=== PATIENT | female | born 1960 | race Caucasian/White ===

== ENCOUNTER 2019-10-31 17:06 | Outpatient (CLI) | payer OTHER, SELFPAY | END 2019-10-31 17:07 | disposition home or self-care (01) | LOC: RAD 17:13 | PROVIDERS: Visit Provider Registered Nurse | DX: Z01.89 Encounter for other specified special examinations (principal) ==

== ENCOUNTER 2019-10-31 17:53 | Emergency (ER) | payer OTHER, SELFPAY ==
--- NOTE | 2019-10-31 | USR_ITS ---
[facility] Final Radiology Report with Addendum Call: [phone] assistance Online chat: [email or web address] Name: MIRTA TAPIA Age: 59Years U Date: 10/31/2019 MRN: [id number] SSN: -- : 1960 Study: US DUPLEX EXTREM VEINS BILAT COMPLETE Requesting Physician: Mary Thomason Images: [id number] Add?l Studies: Provided Clinical History: Prelim given to Pt's provider and was taken to ER Addendum created by Bob Phillip DO on 10/31/2019 10:44 PM Central Time ([place] & [place]) THIS REPORT CONTAINS FINDINGS THAT MAY BE CRITICAL TO PATIENT CARE. The findings were verbally communicated via telephone conference with Mary Thomason at 10:43 PM ENERGY AND SUSTAINABILITY MANAGER on 10/31/2019. The findings were acknowledged and understood. 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 Had history of a clot in her arm several years ago; Additional info: Prelim given to pt's provider and was taken to er TECHNIQUE: Imaging protocol: Real-time duplex ultrasound of the Lower Extremities with 2-D pickering scale, color Doppler flow and spectral waveform analysis with image documentation. Complete exam focused on the bilateral lower extremity veins. COMPARISON: No relevant prior studies available. FINDINGS: Right deep veins: Unremarkable. The common femoral, femoral, proximal profunda femoral and popliteal veins are patent without thrombus. Normal Doppler waveforms. Normal compressibility and/or augmentation response. Right superficial veins: Occlusive thrombus of the right superficial saphenous vein. Left deep veins: Examination reveals evidence of subacute to early chronic appearing nonocclusive thrombus of the proximal left common femoral vein. Left superficial veins: Occlusive thrombus of the greater saphenous vein and superficial saphenous vein on the left. Soft tissues: Unremarkable. Other findings: In addition to the static images which numbered over 27 images there were an additional 68 cine loops that required review. IMPRESSION: 1. Evidence of subacute to early chronic nonocclusive deep venous thrombosis of the proximal left common femoral vein. 2. Occlusive thrombus of the left greater saphenous vein and superficial saphenous vein. 3. Occlusive thrombus of the right superficial saphenous vein. Thank you for allowing us to participate in the care of your patient. Dictated and Authenticated by: Bob Phillip DO 10/31/2019 7:15 PM Central Time ([place] & [place]) CHAR
[2019-10-31 18:05] VITALS: BP 134/79; PULSE 94; RESP 18; TEMP 36.6; O2SAT 97; BMI 38.4
--- NOTE | 2019-10-31 18:12 | ED_ITS ---
Entered by [place], acting as scribe for Oct 31, 2019 17:53 HPI - General Adult General: Chief complaint: General Medical Stated complaint: bilat leg blood clots per ultrasound Time Seen by Provider: 10/31/19 18:12 Source: patient Mode of arrival: ambulatory Limitations: no limitations History of Present Illness: HPI narrative: 59 yo f came to the er from [facility] [place] Ultrasound. Pt was sent over from ultrasound due to massive blood clots in bilat legs. Pt states that she has been having some pain in her right calf and in her left side there has been some redness but not as much pain. Pt states that her dr is . MD complaint: blood clots Onset (ago): day(s) (today) Location: lower extremity (both) Severity: moderate Quality: sharp Pain Consistency: constant Relieving factors: none Exacerbating factors: none Associated symptoms: Reports no associated symptoms; Deny chest pain, confusion, diaphoresis, dyspnea, headache(s), malaise, nausea, rash, palpitations, syncope or vomiting Review of Systems General: Reports: other (negative unless marked) Const: Denies: fever, chills, body aches, fatigue, malaise or diaphoresis Eyes: Denies: change in vision or blurry vision ENMT: Denies: throat pain, painful swallowing, hoarseness, ear pain, ear discharge, Change in hearing or nasal discharge Card: Denies: chest pain, palpitations, irregular heart rhythm, syncope, pre- syncope, shortness of breath on exertion or shortness of breath when lying down Resp: Denies: shortness of breath, productive cough, non-productive cough, wheezing, coughing up blood or chest congestion GI: Denies: abdominal pain, nausea, vomiting, vomiting blood, coffee grounds in vomit, diarrhea, constipation, cramping, blood in stool or black tarry stool : Denies: flank pain, painful urination, urinary frequency, urinary urgency, decreased urine ouput, urinary incontinence or blood in urine Musc: Reports: extremity pain; Denies: neck pain, back pain, extremity swelling, joint pain, joint swelling, joint warmth or joint stiffness Skin/Breast: Denies: rash, skin tenderness or yellow skin Neuro: Denies: headache, numbness in extremities, weakness in extremities, changes in sensation, lack of coordination, difficulty walking, dizziness, vertigo or confusion Endo: Denies: excessive thirst, tired all the time, cold intolerance, exc essive sweating, flushing or hot flashes Zackary/Lymph: Denies: easy bruising, easy bleeding, petechiae or enlarged lymph nodes All/Imm: Denies: hives, throat swelling, tongue swelling, facial swelling or acute wheezing PFSH ED PFSH: Social History Smoking and tobacco status: former smoker Physical Exam Const: COMMON NORMALS: no apparent distress, oriented x3, no limitations, healthy appearing and well nourished EXAM LIMITATIONS: no altered mental status GENERAL APPEARANCE: cooperative, well kempt and well developed ORIENTATION/CONSCIOUSNESS: Yes awake HENMT: COMMON NORMALS: normocephalic, head/scalp atraumatic, hearing grossly normal bilaterally, external ears normal, EAC's normal, external nose normal and moist oral mucous membranes HEAD & SCALP: normal to inspection, normocephalic and atraumatic FACE & SINUS: normal facial exam and face symmetric NOSE: external nose normal and nares normal EXTERNAL EAR: Yes external ears normal EXTERNAL AUDITORY CANAL: EAC's normal MOUTH: oral and palatal mucosa normal and tongue normal Eye: COMMON NORMALS: PERRL, EOMs intact bilaterally, conjunctivae normal and no scleral icterus GENERAL EYE: normal appearance of both eyes and normal light reflex CONJUNCTIVA: Yes conjunctivae normal SCLERA: sclerae normal CORNEA: Yes corneas normal PUPIL: Yes PERRL DIRECT OPHTHALMOSCOPY: Yes normal light reflex Neck/C-Spine: COMMON NORMALS: full ROM, no lymphadenopathy, supple, no meningeal signs and no JVD GENERAL: Yes normal visual inspection and Yes trachea midline CERVICAL SPINE: Yes cervical ROM normal Chest: COMMONS NORMALS: inspection of chest normal and palpation of chest normal Resp: COMMON NORMALS: normal respiratory effort, no retractions, no use of accessory muscles and clear to auscultation bilaterally EFFORT & INSPECTION: Yes able to speak in complete sentences AUSCULTATION: clear to auscultation bilaterally Cardio: COMMON NORMALS: no JVD, regular rate, regular rhythm, S1 normal heart sound, S2 normal heart sound, no gallops, no clicks, no murmurs and no rub JUGULAR VENOUS DISTENTION: no JVD RATE: regular rate RHYTHM: regular rhythm HEART SOUNDS: S1 normal and S2 normal GI: COMMON NORMALS: soft to palpation, non-tender, no hepatosplenomegaly and no masses INSPECTION: Yes normal to inspection PALPATION: Yes soft and Yes no hepatosplenomegaly : COMMON NORMALS: Yes no CVA tenderness BLADDER/KIDNEY EXAM: Yes no CVA tenderness Back/Pelvis: COMMON NORMALS: no CVA tenderness, thoracic and lumbar spine normal to inspection, no thoracic nor lumbar tenderness and thoraco-lumbar ROM normal Extremity: COMMON NORMALS: full ROM, normal capillary refill, no joint en largement and no clubbing, cyanosis or edema Neuro: COMMON NORMALS: oriented x3, CN's II-XII intact bilaterally, moves all extremities, no focal motor deficits and no sensory deficits noted MENINGEAL SIGNS: Yes no meningeal signs Psych: COMMON NORMALS: mental status grossly normal, thought process normal, cooperative, affect normal, speech normal and activity/motor behavior normal APPEARANCE: Yes well kempt SPEECH: Yes normal speech THOUGHT PROCESS: normal thought process Skin: COMMON NORMALS: no rashes or lesions noted, skin turgor normal, no jaundice, no petechiae and no mottling GENERAL SKIN EXAM: no rashes or lesions noted and turgor normal Course Vital Signs: Vital signs: Vital Signs Temperature 98 F 10/31/19 18:05 Pulse Rate 88 10/31/19 20:09 Respiratory Rate 18 10/31/19 20:09 Blood Pressure 117/77 10/31/19 20:09 Pulse Oximetry 98 10/31/19 20:09 MDM - General Adult MDM Narrative: Medical decision making narrative: The patient has no evidence of right heart strain on CT, her BNP is normal, her troponin is normal and she has no chest pain or shortness of breath. I reviewed the case in full with Dr. Carmen on-call for pulmonology and he states the patient can be discharged home and follow-up with him in the office. I reviewed this with the patient and this pleases her. She does not want to be admitted to the hospital. I have informed her of the risks but she states that if the same things could happen in the hospital she would much rather be at home. She agrees to return should the symptoms develop but at this time she is feeling reassured and wants to go home. She was given a dose of Lovenox here and she assures me that she cannot fill her prescription for Eliquis in the morning and begin that as prescribed. Lab Data: Attestation: I reviewed the patient's lab results. Labs: Lab Results 10/31/19 10/31/19 10/31/19 Range/Units 18:10 18:15 18:15 WBC 6.0 (4.0-10.0) 10^3/ uL RBC 4.59 (4.1-5.3) 10^6/u L Hgb 13.5 (11.5-15.3) g/dL Hct 40.5 (37.0-47.0) % MCV 88.2 (81-99) fL MCH 29.4 (28.0-34.0) pg MCHC 33.3 (30.0-36.0) g/dL RDW 12.5 (12.1-15.1) % Plt Count 235 (130-400) 10^3/c mm MPV 8.9 (7.4-10.4) fL Neut % (Auto) 42.4 % Lymph % (Auto) 45.3 % Cassia % (Auto) 7.8 % Eos % (Auto) 4.0 % Baso % (Auto) 0.5 % Neut # (Auto) 2.6 (1.8-7.7) 10^3/u L Lymph # (Auto) 2.7 (0.8-4.8) 10^3/u L Cassia # (Auto) 0.5 (0.2-0.9) 10^3/u L Eos # (Auto) 0.2 (0.0-0.8) 10^3/u L Baso # (Auto) 0.0 (0.0-0.1) 10^3/u L Nucleated RBC % (a uto) 0 % Nucleated RBCs # 0.0 /100WBC PT 13.30 (10.5-13.3) SECO NDS INR 0.98 (0.8-1.2) APTT 29.7 (23.9-36.7) SECO NDS Sodium (136-145) mmol/L Potassium (3.5-5.1) mmol/L Chloride (98-107) mmol/L Carbon Dioxide (22-29) mmol/L Anion Gap (5-19) BUN (6-20) mg/dL Creatinine (0.5-0.9) mg/dL GFR Calculation (90-130) mL/min Glucose (65-115) mg/dL Calcium (8.5-10.5) mg/dL Total Bilirubin (0.15-1.2) mg/dL AST (0-32) U/L ALT (0-33) U/L Alkaline Phosphata se (35-105) IU/L Troponin T Baselin e (0-10) ng/mL NT-Pro-B Natriuret Pep (0-125) pg/mL Total Protein (6.6-8.7) g/dL Albumin (3.5-5.2) g/dL Globulin (1.3-4.6) g/dL Urine Color Yellow (Yellow) Urine Appearance Cloudy (CLEAR) Urine pH 5 (5-7) Ur Specific Gravit y 1.020 (1.005-1.030) Urine Protein Neg (Negative) Urine Glucose (UA) Norm (Normal) Urine Ketones Negative (Negative) Urine Blood Neg (Negative) Urine Nitrate Negative (Negative) Urine Bilirubin Neg (NEGATIVE) Urine Urobilinogen 1 H (Negative) mg/dL Ur Leukocyte Marla ase Negative (Negative) Urine RBC None (0-2) /hpf Urine WBC 5-10 H (0-5) /hpf Ur Squamous Epith Cells 10-15 H (0-5) Urine Bacteria Trace (NONE) 10/31/19 10/31/19 Range/Units 18:15 18:15 WBC (4.0-10.0) 10^3/ uL RBC (4.1-5.3) 10^6/u L Hgb (11.5-15.3) g/dL Hct (37.0-47.0) % MCV (81-99) fL MCH (28.0-34.0) pg MCHC (30.0-36.0) g/dL RDW (12.1-15.1) % Plt Count (130-400) 10^3/c mm MPV (7.4-10.4) fL Neut % (Auto) % Lymph % (Auto) % Cassia % (Auto) % Eos % (Auto) % Baso % (Auto) % Neut # (Auto) (1.8-7.7) 10^3/u L Lymph # (Auto) (0.8-4.8) 10^3/u L Cassia # (Auto) (0.2-0.9) 10^3/u L Eos # (Auto) (0.0-0.8) 10^3/u L Baso # (Auto) (0.0-0.1) 10^3/u L Nucleated RBC % (a uto) % Nucleated RBCs # /100WBC PT (10.5-13.3) SECO NDS INR (0.8-1.2) APTT (23.9-36.7) SECO NDS Sodium 139 (136-145) mmol/L Potassium 3.9 (3.5-5.1) mmol/L Chloride 98 (98-107) mmol/L Carbon Dioxide 27 (22-29) mmol/L Anion Gap 17.9 (5-19) BUN 13 (6-20) mg/dL Creatinine 0.7 (0.5-0.9) mg/dL GFR Calculation 86.2 L (90-130) mL/min Glucose 106 (65-115) mg/dL Calcium 9.9 (8.5-10.5) mg/dL Total Bilirubin 0.5 (0.15-1.2) mg/dL AST 38 H (0-32) U/L ALT 47 H (0-33) U/L Alkaline Phosphata se 106 H (35-105) IU/L Troponin T Baselin e 6 (0-10) ng/mL NT-Pro-B Natriuret Pep 106 (0-125) pg/mL Total Protein 7.9 (6.6-8.7) g/dL Albumin 4.3 (3.5-5.2) g/dL Globulin 3.6 (1.3-4.6) g/dL Urine Color (Yellow) Urine Appearance (CLEAR) Urine pH (5-7) Ur Specific Gravit y (1.005-1.030) Urine Protein (Negative) Urine Glucose (UA) (Normal) Urine Ketones (Negative) Urine Blood (Negative) Urine Nitrate (Negative) Urine Bilirubin (NEGATIVE) Urine Urobilinogen (Negative) mg/dL Ur Leukocyte Marla ase (Negative) Urine RBC (0-2) /hpf Urine WBC (0-5) /hpf Ur Squamous Epith Cells (0-5) Urine Bacteria (NONE) Imaging Data^: CTA Chest: Radiologist's impression: [facility] [address] [place] [address] CT Scan Report Signed Patient: Betty Tapia #: [id number] : 1960Acct#:[id number] Age/Sex: 59 / FADM Date: 10/31/19 Loc: ERRoom/Bed: Attending Dr: Ordering Provider/Ordering MD: Mary Thomason DO Date of Service: 10/31/19 Procedure(s): CT angio chest PE protcl [id number] Accession Number(s): [id number] Report Number: [id number] PROCEDURE INFORMATION: Exam: CT Angiography Chest With Contrast Exam date and time: 10/31/2019 7:08 PM Age: 59 years old Clinical indication: Abnormal findings; Other: +dvt by US; Patient HX: + dvt by US, C/O minimal SOB and cp; Additional info: Dyspnea - dvt positive TECHNIQUE: Imaging protocol: Computed tomographic angiography of the chest with intravenous contrast. 3D rendering: MIP and/or 3D reconstructed images were created by the technologist. Total DLP: 530.85 mGy-cm Radiation optimization: All CT scans at this facility use at least one of these dose optimization techniques: automated exposure control; mA and/or kV adjustment per patient size (includes targeted exams where dose is matched to clinical indication); or iterative reconstruction. Contrast material: OMNI 350; Contrast volume: 95 ml; Contrast route: 20G; COMPARISON: No relevant prior studies available. FINDINGS: Pulmonary arteries: There is a large embolus in the left lower lobe pulmonary artery extending into segmental branches. Aorta: Unremarkable. No aortic aneurysm. No aortic dissection. Lungs: Minor linear atelectasis or fibrosis at the left lung base. Series 3, image 36, 7 mm nodule in the the lingula. Pleural space: Unremarkable. No pneumothorax. No pleural effusion. Heart: Unremarkable. No cardiomegaly. No pericardial effusion. Adrenals: There is a small, 10 mm, left adrenal nodule. The appearance is nonspecific. Stomach and bowel: There are postoperative changes of the stomach. Lymph nodes: There are small nonspecific mediastinal lymph nodes. No significantly enlarged lymph nodes. Bones/joints: Unremarkable. No acute fracture. Soft tissues: Unremarkable. Other findings: No evidence of RV strain. CT/CT angio chest PE protcl [id number] IMPRESSION: 1. Left large left lower lobe pulmonary arterial embolus extending into segmental branches. No evidence of RV strain. 2. 7 mm pulmonary nodule in the lingula.For patients at low risk (minimal or absent history of smoking and of other known risk factors), recommend CT at 6-12 months, then consider CT at 18-24 months. For patients at high risk (history of smoking or of other known risk factors), recommend CT at 6-12 months, then CT at 18-24 months. (Alfredo et al., Fleischner Society, 2017) 3. Nonspecific 10 mm left adrenal nodule.Consider 12 month follow-up adrenal CT. (Marianela Meier, ACR White Paper, 2017) COMMENTS: Consistent with the [place] [employer]'s Incidental Findings Committee white paper (J Am Clyde Radiol 2017): Any incidental adrenal lesion less than 1.0 cm is likely benign. No follow-up imaging is recommended for these lesions per consensus recommendations based on imaging criteria. Further lab evaluation could be pursued if warranted based on clinical findings. Radiation Dose CTDIVOL = (mGy): DLP = 530.85 (mGy-cm) Dictated By:Steven Snell MD Signed By:Steven Snelligned Date/Time:10/31/192001 DD/ 00 US: Radiologist's impression: [facility] Final Radiology Report Call: [phone] assistance Online chat: [email or web address] Name: BETTY TAPIA Age: 59Years U Date: 10/31/2019 MRN: WILLIE SSN: -- : 1960 Study: US DUPLEX EXTREM VEINS BILAT COMPLETE Requesting Physician: Mary Thoamson Images: [id number] Add?l Studies: Provided Clinical History: Prelim given to Pt's provider and was taken to ER Page 1 of 2 PROCEDURE INFORMATION: Exam: US Duplex Lower Extremity Veins Exam date and time: 10/31/2019 5:28 PM Age: 59 years old Clinical indication: Pain; Leg, lower; Bilateral; 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 Had history of a clot in her arm several years ago; Additional info: Prelim given to pt's provider and was taken to er TECHNIQUE: Imaging protocol: Real-time duplex ultrasound of the Lower Extremities with 2-D pickering scale, color Doppler flow and spectral waveform analysis with image documentation. Complete exam focused on the bilateral lower extremity veins. COMPARISON: No relevant prior studies available. FINDINGS: Right deep veins: Unremarkable. The common femoral, femoral, proximal profunda femoral and popliteal veins are patent without thrombus. Normal Doppler waveforms. Normal compressibility and/or augmentation response. Right superficial veins: Occlusive thrombus of the right superficial saphenous vein. Left deep veins: Examination reveals evidence of subacute to early chronic appearing nonocclusive thrombus of the proximal left common femoral vein. Left superficial veins: Occlusive thrombus of the greater saphenous vein and superficial saphenous vein on the left. Soft tissues: Unremarkable. Other findings: In addition to the static images which numbered over 27 images there were an additional 68 cine loops that required review. IMPRESSION: BETTY TAPIA MRN:WILLIE Final Radiology Report CONFIDENTIALITY STATEMENT This report is intended only for use by the referring physician, and only in accordance with law. If you received this in error, call [phone]. Page 2 of 2 1. Evidence of subacute to early chronic nonocclusive deep venous thrombosis of the proximal left common femoral vein. 2. Occlusive thrombus of the left greater saphenous vein and superficial saphenous vein. 3. Occlusive thrombus of the right superficial saphenous vein. Thank you for allowing us to participate in the care of your patient. Dictated and Authenticated by: Bob Phillip DO 10/31/2019 7:15 PM Central Time ([place] & [place]) EKG Data^: EKG 1: EKG interpretation date: 10/31/19 EKG interpretation time: 18:43 Interpretation: Normal sinus rhythm at 87 beats a minute, incomplete right bundle branch block. Computer generated interpretation: Chest CTA 10/31/19 18:18 IMPRESSION: 1. Left large left lower lobe pulmonary arterial embolus extending into segmental branches. No evidence of RV strain. 2. 7 mm pulmonary nodule in the lingula.For patients at low risk (minimal or absent history of smoking and of other known risk factors), recommend CT at 6-12 months, then consider CT at 18-24 months. For patients at high risk (history of smoking or of other known risk factors), recommend CT at 6-12 months, then CT at 18-24 months. (MacMahon et al., Fleischner Society, 2017) 3. Nonspecific 10 mm left adrenal nodule.Consider 12 month follow-up adrenal CT. (Marianela Meier, ACR White Paper, 2017) COMMENTS: Consistent with the [place] [employer]'s Incidental Findings Committee white paper (J Am Clyde Radiol 2017): Any incidental adrenal lesion less than 1.0 cm is likely benign. No follow-up imaging is recommended for these lesions per consensus recommendations based on imaging criteria. Further lab evaluation could be pursued if warranted based on clinical findings. Radiation Dose CTDIVOL = (mGy): DLP = 530.85 (mGy-cm) ADDENDUM: 10/31/192007 THIS REPORT CONTAINS FINDINGS THAT MAY BE CRITICAL TO PATIENT CARE. The findings were verbally communicated via telephone conference with Mary Thomason at 8:07 PM MANUAL CONTROL AUGER PRESS OPERATOR on 10/31/2019. The findings were acknowledged and understood. Radiation Dose CTDIVOL = (mGy): DLP = 530.85 (mGy-cm) EKG 2: Attestation: I personally reviewed and interpreted this EKG as follows: EKG interpretation date: 10/31/19 EKG interpretation time: 20:05 Interpretation: Normal sinus rhythm at 87 beats a minute, no acute ST-T wave changes. Computer generated interpretation: Chest CTA 10/31/19 18:18 IMPRESSION: 1. Left large left lower lobe pulmonary arterial embolus extending into segmental branches. No evidence of RV strain. 2. 7 mm pulmonary nodule in the lingula.For patients at low risk (minimal or absent history of smoking and of other known risk factors), recommend CT at 6-12 months, then consider CT at 18-24 months. For patients at high risk (history of smoking or of other known risk factors), recommend CT at 6-12 months, then CT at 18-24 months. (Yoelhokatherine et al., Fleischner Society, 2017) 3. Nonspecific 10 mm left adrenal nodule.Consider 12 month follow-up adrenal CT. (Marianela Meier, ACR White Paper, 2017) COMMENTS: Consistent with the [place] [employer]'s Incidental Findings Committee white paper (J Am Clyde Radiol 2017): Any incidental adrenal lesion less than 1.0 cm is likely benign. No follow-up imaging is recommended for these lesions per consensus recommendations based on imaging criteria. Further lab evaluation could be pursued if warranted based on clinical findings. Radiation Dose CTDIVOL = (mGy): DLP = 530.85 (mGy-cm) ADDENDUM: 10/31/192007 THIS REPORT CONTAINS FINDINGS THAT MAY BE CRITICAL TO PATIENT CARE. The findings were verbally communicated via telephone conference with Mary Thomason at 8:07 PM MANUAL CONTROL AUGER PRESS OPERATOR on 10/31/2019. The findings were acknowledged and understood. Radiation Dose CTDIVOL = (mGy): DLP = 530.85 (mGy-cm) Discharge Plan Discharge Patient Disposition: Home, Self-Care Clinical Impression: Pulmonary embolism Qualifiers: Pulmonary embolism type: multiple subsegmental (without acute cor pulmonale) Qualified Code(s): I26.94 - Multiple subsegmental pulmonary emboli without acute cor pulmonale DVT (deep venous thrombosis) Qualifiers: DVT location: lower extremity Affected thrombotic vein of extremity: uns pecified lower extremity distal vein Chronicity: acute Laterality: bilateral Qualified Code(s): I82.4Z3 - Acute embolism and thrombosis of unspecified deep veins of distal lower extremity, bilateral Condition: Stable Prescriptions: New Eliquis DVT-PE Treat 30D Start 5 mg (74 tabs) tablets,dose pack See Rx Instructions .ROUTE .COMPLEX Qty: 74 RF: 0 [place] 5-325 mg tablet 1 tab PO Q8H PRN (Reason: pain) Qty: 10 RF: 0 No Action losartan 50 mg tablet 50 mg PO DAILY RF: 0 Advair Diskus 250-50 mcg/dose blister with device See Rx Instructions .ROUTE .COMPLEX RF: 0 diclofenac sodium 100 mg tablet extended release 24 hr 100 mg PO PRN PRN (Reason: Inflammation) RF: 0 ProAir HFA 90 mcg/actuation HFA aerosol inhaler 2 - 4 puff INHALATION Q4D PRN (Reason: Shortness Of Breath) RF: 0 hydrochlorothiazide 12.5 mg tablet 12.5 mg PO DAILY RF: 0 [place] Thyroid 90 mg tablet 90 mg PO DAILY RF: 0 Discharge Orders: Discharge Order (Routine); Ordered 10/31/19 Ordered By: Mary Thomason Referrals: Eliseo Enamorado MD [Primary Care Provider] - Connor Carmen MD [Physician] - 1-3 days Discharge Diet: Advance as tolerated Discharge Activity: Increase activity as tolerated Patient Instructions: Pulmonary Embolism (GEN), Deep Venous Thrombosis (ED), Pulmonary Embolism Activity Restrictions/Additional Instructions: Please return to the ER immediately for any of the signs or symptoms listed on your discharge instruction sheets, worsening/changing of your symptoms, you are not getting better as quickly as expected, or for ANY other cause or concerns. Be certain to begin your Eliquis tomorrow morning. If for any reason you cannot get this filled return to the ER immediately. Return to the ER for chest pain, shortness of breath, you faint or nearly faint, you have increased leg pain or for any other cause for concern. Coding Level of Care Code ED Continuous Pickling Line Pickler for Chg Fwd Exam Comprehensive The documentation recorded by the Jaya rojas Stephanie Lyn, accurately reflects the service I personally performed and the decisions made by me, Mary Thomason Oct 31, 2019 17:53
--- NOTE | 2019-10-31 18:17 | ECG_ITS ---
Measurements Intervals [place] Rate: 87 P: 35 MA: 127 QRS: 53 QRSD: 84 T: 34 QT: 359 QTc: 434 SINUS RHYTHM No previous ECG available for comparison Electronically Signed On 11-01-2019 8:17:06 BODY ART TECHNICIAN by Vandana Huang M.D. [email or web address]
--- NOTE | 2019-10-31 18:18 | CTR_ITS ---
PROCEDURE INFORMATION: Exam: CT Angiography Chest With Contrast Exam date and time: 10/31/2019 7:08 PM Age: 59 years old Clinical indication: Abnormal findings; Other: +dvt by US; Patient HX: + dvt by US, C/O minimal SOB and cp; Additional info: Dyspnea - dvt positive TECHNIQUE: Imaging protocol: Computed tomographic angiography of the chest with intravenous contrast. 3D rendering: MIP and/or 3D reconstructed images were created by the technologist. Total DLP: 530.85 mGy-cm Radiation optimization: All CT scans at this facility use at least one of these dose optimization techniques: automated exposure control; mA and/or kV adjustment per patient size (includes targeted exams where dose is matched to clinical indication); or iterative reconstruction. Contrast material: OMNI 350; Contrast volume: 95 ml; Contrast route: 20G; COMPARISON: No relevant prior studies available. FINDINGS: Pulmonary arteries: There is a large embolus in the left lower lobe pulmonary artery extending into segmental branches. Aorta: Unremarkable. No aortic aneurysm. No aortic dissection. Lungs: Minor linear atelectasis or fibrosis at the left lung base. Series 3, image 36, 7 mm nodule in the the lingula. Pleural space: Unremarkable. No pneumothorax. No pleural effusion. Heart: Unremarkable. No cardiomegaly. No pericardial effusion. Adrenals: There is a small, 10 mm, left adrenal nodule. The appearance is nonspecific. Stomach and bowel: There are postoperative changes of the stomach. Lymph nodes: There are small nonspecific mediastinal lymph nodes. No significantly enlarged lymph nodes. Bones/joints: Unremarkable. No acute fracture. Soft tissues: Unremarkable. Other findings: No evidence of RV strain. CT/CT angio chest PE protcl [id number] IMPRESSION: 1. Left large left lower lobe pulmonary arterial embolus extending into segmental branches. No evidence of RV strain. 2. 7 mm pulmonary nodule in the lingula.For patients at low risk (minimal or absent history of smoking and of other known risk factors), recommend CT at 6-12 months, then consider CT at 18-24 months. For patients at high risk (history of smoking or of other known risk factors), recommend CT at 6-12 months, then CT at 18-24 months. (Alfredo et al., Fleischner Society, 2017) 3. Nonspecific 10 mm left adrenal nodule.Consider 12 month follow-up adrenal CT. (Marianela Meier, ACR White Paper, 2017) COMMENTS: Consistent with the [employer]'s Incidental Findings Committee white paper (J Am Clyde Radiol 2017): Any incidental adrenal lesion less than 1.0 cm is likely benign. No follow-up imaging is recommended for these lesions per consensus recommendations based on imaging criteria. Further lab evaluation could be pursued if warranted based on clinical findings. Radiation Dose CTDIVOL = (mGy): DLP = 530.85 (mGy-cm)
[2019-10-31] MEDS: sodium chloride 0.9% 1,000 ML 100 ML IV (18:27)
[2019-10-31 18:29] LABS: Basophils % 0.5 %; Eosinophils # 0.2 10^3/uL (0.0-0.8); Hematocrit 40.5 % (37.0-47.0); Hemoglobin 13.5 g/dL (11.5-15.3); Lymphocytes # 2.7 10^3/uL (0.8-4.8); Lymphocytes % 45.3 %; Mean Corpuscular HGB Conc 33.3 g/dL (30.0-36.0); Mean Corpuscular Hemoglobin 29.4 pg (28.0-34.0); Mean Corpuscular Volume 88.2 fL (81-99); Mean Platelet Volume 8.9 fL (7.4-10.4); Monocytes # 0.5 10^3/uL (0.2-0.9); Monocytes % 7.8 %; Neutrophils # 2.6 10^3/uL (1.8-7.7); Neutrophils % 42.4 %; Nucleated Red Blood Cells % 0 %; Platelet Count 235 10^3/cmm (130-400); Red Blood Count 4.59 10^6/uL (4.1-5.3); Red Cell Distribution Width 12.5 % (12.1-15.1)
[2019-10-31 18:35] LABS: INR 0.98 (0.8-1.2)
[2019-10-31 18:36] LABS: Partial Thromboplastin Time 29.7 SECONDS (23.9-36.7)
[2019-10-31 18:48] LABS: Bilirubin Urine Neg (NEGATIVE); Blood Urine Neg (Negative); Glucose Urine UA Norm (Normal); Ketones Urine Negative (Negative); Leukocyte Esterase Urine Negative (Negative); Nitrate Urine Negative (Negative); Protein Urine Neg (Negative); Urine Appearance Cloudy (CLEAR); Urine Color Yellow (Yellow); Urobilinogen Urine 1 mg/dL (Negative); pH Urine 5 (5-7)
[2019-10-31 18:51] LABS: Troponin(5th) Baseline 6 ng/mL (0-10)
[2019-10-31 18:54] LABS: Bacteria Urine TRACE
[2019-10-31 18:55] LABS: Add Urine Culture? No
[2019-10-31 19:00] LABS: Alanine Aminotransferase 47 U/L (0-33); Albumin Level 4.3 g/dL (3.5-5.2); Alkaline Phosphatase 106 IU/L (35-105); Anion Gap 17.9 (5-19); Aspartate Amino Transferase 38 U/L (0-32); Blood Urea Nitrogen 13 mg/dL (6-20); Calcium 9.9 mg/dL (8.5-10.5); Carbon Dioxide 27 mmol/L (22-29); Chloride 98 mmol/L (98-107); Globulin 3.6 g/dL (1.3-4.6); Glomerular Filtration Rate 86.2 mL/min (90-130); Glucose 106 mg/dL (65-115); NT Pro B Type Natriuretic Pept 106 pg/mL (0-125); Potassium 3.9 mmol/L (3.5-5.1); Sodium 139 mmol/L (136-145); Total Bilirubin 0.5 mg/dL (0.15-1.2); Total Protein 7.9 g/dL (6.6-8.7)
[2019-10-31] MEDS: iohexol 350 mg/mL 100 mL Btl IV (19:20)
[2019-10-31] MEDS: enoxaparin 100 mg/mL Syringe 95 MG SUBCUT (19:48)
[2019-10-31 20:09] VITALS: BP 117/77; PULSE 88; RESP 18; O2SAT 98
--- NOTE | 2019-10-31 20:17 | ECG_ITS ---
Measurements Intervals [place] Rate: 87 P: 41 WI: 124 QRS: 58 QRSD: 85 T: 44 QT: 368 QTc: 443 SINUS RHYTHM LOW QRS VOLTAGE IN PRECORDIAL LEADS [QRS DEFLECTION < 1.0 mV IN CHEST LEADS] No previous ECG available for comparison Electronically Signed On 11-01-2019 8:21:12 ASSISTANT ACCOUNTING MANAGER by Vandana Huang M.D. [id number]
[2019-10-31 20:33] VITALS: BP 144/95; PULSE 91; RESP 17; O2SAT 98
--- NOTE | 2019-11-04 11:26 | DCPLANNER ---
service center manager had message to schedule a follow up appointment for patient with [facility]. service center manager called [facility], spoke with Felicita, gave clinic patients information. service center manager was told that patients information would be reviewed, clinic will call patient with appointment information.
--- NOTE | 2019-11-06 09:11 | DCPLANNER ---
Patient had an appointment scheduled for 11.05.19 with [facility], with Dr. Carmen. Patient did attend the appointment.
== END 2019-10-31 20:33 | disposition home or self-care (01) ==
PROVIDERS: Emergency Provider Emergency Medicine
DX: I26.94 Multiple subsegmental thrombotic pulmonary emboli without acute cor pulmonale (principal); I82.4Z3 Acute embolism and thrombosis of unspecified deep veins of distal lower extremity, bilateral; I82.512 Chronic embolism and thrombosis of left femoral vein; I82.5Z2 Chronic embolism and thrombosis of unspecified deep veins of left distal lower extremity; R91.1 Solitary pulmonary nodule; E27.8 Other specified disorders of adrenal gland
CPT/HCPCS: 12345; 71275; 80053; 81001; 83880; 84484; 85025; 85610; 85730; 93005; 93970; 96360; 96361; 96372; 99283; 99284; J1650; J7030; Q9967

== ENCOUNTER 2019-11-21 08:48 | Outpatient (CLI) | payer OTHER, SELFPAY ==
--- NOTE | 2019-11-21 09:30 | USCV_ITS ---
Betty Littlejohn Age: 59 Gender: F : 1960 Exam Date: 11/21/2019 08:56 Ordering Phys: Connor Carmen MD Technologist: Isamar Anne Exam Location: [facility] Indication: PE , SOB BP: / HR: 76 Rhythm: Sinus Technical Quality: Adequate MEASUREMENTS (Male / Female) Normal Values 2D ECHO LV Diastolic Diameter PLAX 4.1 cm 4.2 - 5.9 / 3.9 - 5.3 cm LV Systolic Diameter PLAX 2.3 cm IVS Diastolic Thickness 1.0 cm 0.6 - 1.0 / 0.6 - 0.9 cm IVS Systolic Thickness 1.3 cm LVPW Diastolic Thickness 1.2 cm 0.6 - 1.0 / 0.6 - 0.9 cm LVPW Systolic Thickness 1.7 cm LVOT Diameter 2.0 cm LV Ejection Fraction 2D Teich 75.8 % LV Ejection Fraction MOD 2C 75.9 % LV Ejection Fraction 2C AL 79.6 % LA Diameter 3.1 cm LA Width 2.6 cm LA Height 4.4 cm RA Width 3.0 cm RA Height 4.0 cm M-MODE LV Diastolic Diameter MM 4.8 cm 4.2 - 5.9 / 3.9 - 5.3 cm LV Systolic Diameter MM 4.0 cm LV Ejection Fraction MM Teich 34.2 % IVS Diastolic Thickness MM 1.2 cm 0.6 - 1.0 / 0.6 - 0.9 cm IVS Systolic Thickness MM 1.5 cm LVPW Diastolic Thickness MM 1.1 cm 0.6 - 1.0 / 0.6 - 0.9 cm LVPW Systolic Thickness MM 2.0 cm Aortic Annulus Diameter 3.2 cm LA Ao Ratio MM 0.9 DOPPLER AV Peak Velocity 132.0 cm/s LVOT Peak Velocity 98.0 cm/s AV Area Cont Eq vti 2.6 cm squared AV Area Cont Eq pk 2.4 cm squared MV Peak Velocity 96.0 cm/s MV Area PHT 3.9 cm squared Mitral E to A Ratio 0.8 MV E' Velocity 10.0 cm/s Mitral E to MV E' Ratio 7.1 Mitral E to LV E' Lateral Ratio 7.3 Mitral E to LV E' Septal Ratio 6.9 TR Peak Velocity 56.0 cm/s TR Peak Gradient 1.2 mmHg Right Atrial Pressure 3.0 mmHg Pulmonary Artery Systolic Pressu 4.3 mmHg PV Peak Velocity 105.0 cm/s RV Acceleration Time 0.1 s FINDINGS Left Ventricle Normal left ventricular size, systolic function and wall thickness, with no regional wall motion abnormalities. Left ventricular ejection fraction is estimated at 75%. Normal diastolic function. Right Ventricle Normal right ventricular size and systolic function. Right Atrium Normal right atrial size. Right atrial pressure estimated at 3 mmHg. Left Atrium Normal left atrial size. Mitral Valve Mildly thickened mitral valve. No mitral valve stenosis. Aortic Valve Aortic valve not well visualized. Probably tricuspid aortic valve. No aortic valve stenosis. No aortic valve regurgitation. Tricuspid Valve Structurally normal tricuspid valve. Trace tricuspid valve regurgitation. Pulmonic Valve Pulmonic valve not well visualized. Trace pulmonary valve regurgitation. Pericardium No pericardial effusion. Aorta Normal size aortic root and proximal ascending aorta. CONCLUSIONS 1. Normal left ventricular size, systolic function and wall thickness, with no regional wall motion abnormalities. Left ventricular ejection fraction is estimated at 75%. Normal diastolic function. 2. Normal right ventricular size and systolic function. 3. Right atrial pressure estimated at 3 mmHg. 4. No significant valvular abnormality. 5. No prior similar studies to compare. Vandana Huang MD (Electronically Signed) Final Date: 21 November 2019 14:39 S
== END 2019-11-21 08:49 | disposition home or self-care (01) ==
LOC: US 08:50
PROVIDERS: Family Provider Registered Nurse; PCP Registered Nurse; Visit Provider Internal Medicine Critical Care Medicine
DX: I26.99 Other pulmonary embolism without acute cor pulmonale (principal)
CPT/HCPCS: 93306

== ENCOUNTER → 2020-07-02 09:13 | Outpatient (BNVA) | payer OTHER, SELFPAY | PROVIDERS: Family Provider Registered Nurse; PCP Registered Nurse; Visit Provider Registered Nurse | DX: E07.9 Disorder of thyroid, unspecified (principal); E66.9 Obesity, unspecified | CPT/HCPCS: 84443 ==

== ENCOUNTER 2021-01-17 10:20 | Outpatient (CLI) | payer BC, SELFPAY | END 2021-01-17 10:21 | disposition home or self-care (01) | LOC: LAB 11-10 16:55 | PROVIDERS: Family Provider Registered Nurse; PCP Registered Nurse; Visit Provider Registered Nurse | DX: E03.9 Hypothyroidism, unspecified (principal) | CPT/HCPCS: 84443 ==

== ENCOUNTER 2021-03-07 12:00 | Outpatient (CLI) | payer BC, SELFPAY | END 2021-03-07 12:01 | disposition home or self-care (01) | LOC: SLEEP 03-11 08:23 | PROVIDERS: Family Provider Registered Nurse; PCP Registered Nurse; Visit Provider Registered Nurse | DX: G47.33 Obstructive sleep apnea (adult) (pediatric) (principal) | CPT/HCPCS: G0399 ==

== ENCOUNTER 2021-03-07 12:48 | Outpatient (CLI) | payer BC, SELFPAY ==
--- NOTE | 2021-03-07 13:00 | MM_ITS ---
WS: [id number] BILATERAL DIGITAL SCREENING MAMMOGRAPHY WITH CAD CLINICAL INFORMATION: Z12.31 - Encounter for screening mammogram for malignant ... HISTORY: Screening mammogram. No current complaints. COMPARISON: None. TECHNIQUE: Bilateral CC and MLO views. FINDINGS: Scattered fibroglandular densities bilaterally. A few incidental punctate calcifications right breast . No suspicious focal mass, asymmetry, calcifications, or architectural distortion. No evidence of ma lignancy. MM/[id number] IMPRESSION: BI-RADS: 2-Benign FOLLOW UP: 1 Year Follow-up Recommend return to annual screening mammography.
== END 2021-03-07 12:49 | disposition home or self-care (01) ==
LOC: RADSHAW 12:53
PROVIDERS: Family Provider Registered Nurse; PCP Registered Nurse; Visit Provider Registered Nurse
DX: Z12.31 Encounter for screening mammogram for malignant neoplasm of breast (principal)
CPT/HCPCS: 77067

== ENCOUNTER → 2021-09-13 14:22 | Outpatient (BNVA) | payer BC, SELFPAY | PROVIDERS: Family Provider Registered Nurse; PCP Registered Nurse; Visit Provider Registered Nurse | DX: E03.9 Hypothyroidism, unspecified (principal) | CPT/HCPCS: 84443 ==

== ENCOUNTER → 2022-01-06 09:14 | Outpatient (BNVA) | payer BC, SELFPAY | PROVIDERS: Family Provider Registered Nurse; PCP Registered Nurse; Visit Provider Registered Nurse | DX: E03.9 Hypothyroidism, unspecified (principal); R53.83 Other fatigue; M70.61 Trochanteric bursitis, right hip; Z98.84 Bariatric surgery status | CPT/HCPCS: 80053; 82607; 84443 ==

== ENCOUNTER 2022-05-05 11:24 | Outpatient (CLI) | payer BC, SELFPAY ==
--- NOTE | 2022-05-05 11:39 | MM_ITS ---
WS: [id number] Bilateral screening 3D tomosynthesis digital mammogram, 05/05/2022 Clinical Data: SCREENING Comparison: 03/07/2021, 08/12/2014, 04/05/2012, 03/19/2012, 10/26/2009, 01/08/2027. Findings: The breast parenchymal pattern shows fibroglandular tissue. No spiculated masses or clustered calcifi cations are seen. There are no secondary signs of carcinoma. MM/[id number] Impression: 1. Negative bilateral mammogram unchanged. 2. Recommend annual screening mammograms. BIRADS: 1-Negative FOLLOW UP: 1 Year Follow-up The CAD mold checker was used.
== END 2022-05-05 11:25 | disposition home or self-care (01) ==
PROVIDERS: PCP Registered Nurse; Visit Provider Registered Nurse
DX: Z12.31 Encounter for screening mammogram for malignant neoplasm of breast (principal)
CPT/HCPCS: 77063; 77067

== ENCOUNTER → 2022-09-15 13:50 | Outpatient (BNVA) | payer BC, SELFPAY | PROVIDERS: PCP Registered Nurse; Visit Provider Internal Medicine Pulmonary Disease | DX: J45.909 Unspecified asthma, uncomplicated (principal); R06.02 Shortness of breath | CPT/HCPCS: 36415; 82785; 85025; 86003 ==

== ENCOUNTER 2022-11-09 07:49 | Outpatient (CLI) | payer BC, SELFPAY | END 2022-11-09 07:50 | disposition home or self-care (01) | LOC: RT 07:50 | PROVIDERS: PCP Registered Nurse; Visit Provider Internal Medicine Pulmonary Disease | DX: Z78.9 Other specified health status (principal); R91.1 Solitary pulmonary nodule; J45.909 Unspecified asthma, uncomplicated | CPT/HCPCS: 94010; 94726; 94729 ==

== ENCOUNTER → 2023-04-02 09:01 | Outpatient (BNVA) | payer BC, SELFPAY | PROVIDERS: PCP Registered Nurse; Visit Provider Registered Nurse | DX: E03.9 Hypothyroidism, unspecified (principal); R00.2 Palpitations | CPT/HCPCS: 80053; 84443; 85025 ==

== ENCOUNTER 2023-07-06 10:03 | Outpatient (CLI) | payer BC, SELFPAY ==
--- NOTE | 2023-07-06 10:00 | MM_ITS ---
WS: [id number] BILATERAL 3D TOMOSYNTHESIS DIGITAL SCREENING MAMMOGRAPHY WITH CAD CLINICAL INFORMATION: Z12.31 - Encounter for screening mammogram for malignant ... HISTORY: Screening mammogram. No current complaints. COMPARISON: 2021 TECHNIQUE: Bilateral CC and MLO views. FINDINGS: Scattered fibroglandular densities bilaterally. No suspicious focal mass, asymmetry, calcifications, or architectural distortion. No evidence of malignancy. Incidental punctate calcifications. IMPRESSION: MM/[place] [id number] BI-RADS: 2-Benign FOLLOW UP: 1 Year Follow-up Recommend return to annual screening mammography.
== END 2023-07-06 10:04 | disposition home or self-care (01) ==
LOC: MOBLMAM 10:07
PROVIDERS: PCP Registered Nurse; Visit Provider Registered Nurse
DX: Z12.31 Encounter for screening mammogram for malignant neoplasm of breast (principal)
CPT/HCPCS: 77063; 77067

== ENCOUNTER → 2024-06-09 10:09 | Outpatient (BNVA) | payer BC, SELFPAY | PROVIDERS: PCP Registered Nurse; Referring Provider Registered Nurse; Visit Provider Internal Medicine | DX: E03.9 Hypothyroidism, unspecified (principal) | CPT/HCPCS: 36415; 84432; 86800 ==

== ENCOUNTER 2024-07-09 12:01 | Outpatient (CLI) | payer BC, SELFPAY ==
--- NOTE | 2024-07-09 12:00 | MM_ITS ---
WS: [id number] Bilateral screening 3D tomosynthesis digital mammogram, 07/09/2024 12:06 PM Clinical Data: SCREENING Comparison: 07/06/2023, 05/05/2022, 03/07/2021, 08/12/2014, 04/05/2012, 03/19/2012, 10/26/2009, 01/08/2007. Findings: No spiculated masses or clustered calcifications are seen. There are no secondary signs of carcinoma . MM/MM scr BI tomosynthesis [id number] Impression: Negative bilateral mammogram unchanged. Recommend annual screening mammograms. BIRADS: 1 - Negative. FOLLOW UP: 1 Year Follow-up DENSITY: There are scattered areas of fibroglandular density. The CAD coloring checker was used
== END 2024-07-09 12:02 | disposition home or self-care (01) ==
LOC: MOBLMAM 12:04
PROVIDERS: PCP Registered Nurse; Visit Provider Registered Nurse
DX: Z12.31 Encounter for screening mammogram for malignant neoplasm of breast (principal)
CPT/HCPCS: 77063; 77067

== ENCOUNTER → 2025-01-27 11:21 | Outpatient (BNVA) | payer BC, SELFPAY | PROVIDERS: PCP Registered Nurse; Visit Provider Internal Medicine | DX: E06.3 Autoimmune thyroiditis (principal); E66.9 Obesity, unspecified; Z98.84 Bariatric surgery status; C73 Malignant neoplasm of thyroid gland; E03.9 Hypothyroidism, unspecified | CPT/HCPCS: 36415; 84432; 84439; 84443; 84480; 86800 ==

== ENCOUNTER 2025-03-10 10:08 | Outpatient (CLI) | payer BC, SELFPAY ==
--- NOTE | 2025-03-10 10:18 | US_ITS ---
WS: [id number] THYROID ULTRASOUND HISTORY: Total thyroidectomy. COMPARISON: 05/15/2024 Patient has undergone complete thyroidectomy. No recurrent mass in the thyroid bed. There are small benign-appearing lymph nodes. No mass identified. Submandibular glands are normal. US/US thyroid [id number] IMPRESSION: Complete thyroidectomy. No recurrent mass identified.
== END 2025-03-10 10:09 | disposition home or self-care (01) ==
PROVIDERS: PCP Registered Nurse; Visit Provider Internal Medicine
DX: Z08 Encounter for follow-up examination after completed treatment for malignant neoplasm (principal); E06.3 Autoimmune thyroiditis; E66.9 Obesity, unspecified; Z98.84 Bariatric surgery status; E03.9 Hypothyroidism, unspecified; Z85.850 Personal history of malignant neoplasm of thyroid
CPT/HCPCS: 76536

== ENCOUNTER → 2025-06-30 10:23 | Outpatient (BNVA) | payer BC, SELFPAY | PROVIDERS: PCP Registered Nurse; Visit Provider Internal Medicine | DX: E06.3 Autoimmune thyroiditis (principal); C73 Malignant neoplasm of thyroid gland | CPT/HCPCS: 84432; 84439; 84443; 86800 ==

== ENCOUNTER → 2025-08-09 12:53 | Outpatient (BNVA) | payer BC, SELFPAY | PROVIDERS: PCP Registered Nurse; Visit Provider Emergency Medicine | DX: R30.0 Dysuria (principal) | CPT/HCPCS: 81000 ==